=== PATIENT | female | born 1965 | race Caucasian/White ===

== ENCOUNTER 2022-07-10 12:03 | Emergency (ER) | payer BC ==
[~2022-07-10] VITALS: Ht 172.7 cm; Wt 68.2 kg
[2022-07-10] MEDS ORDERED: PERCOCET 5MG/325MG TAB PO ONE (12:50)
[2022-07-10] MEDS ORDERED: HYDR-3713 PO (15:06)
[2022-07-10 15:18] VITALS: BP 95/59
== END 2022-07-10 19:57 | disposition home or self-care (01) ==
LOC: M ED 12:03 → EDBD 12:03 → M ED 19:57
DX: S42.351A Displaced comminuted fracture of shaft of humerus, right arm, initial encounter for closed fracture (principal); W01.0XXA Fall on same level from slipping, tripping and stumbling without subsequent striking against object, initial encounter; Y92.830 Public park as the place of occurrence of the external cause; Y93.01 Activity, walking, marching and hiking; Y99.9 Unspecified external cause status